=== PATIENT | female | born 1990 | race Caucasian/White ===

== ENCOUNTER 2019-08-21 15:05 | Emergency (ER) | payer SELFPAY ==
[~2019-08-21] VITALS: Ht 160 cm; Wt 59.0 kg
[2019-08-21 15:30] VITALS: BP 112/73
[2019-08-21 15:33] LABS: BILIRUBIN,URINE NEGATIVE (NEG); CLARITY,URINE CLOUDY; COLOR,URINE YELLOW; NITRITE,URINE NEGATIVE (NEG); PH,URINE 5.5 (<5.0-8.0); PROTEIN,URINE NEGATIVE (NEG-TRACE); UROBILINOGEN,URINE 0.2 mg/dL (0.2 mg/dL)
[2019-08-21 15:44] LABS: BACTERIA,URINE MANY /HPF (0-FEW); SQUAMOUS EPITHELIAL CELL,UR MANY /LPF
[2019-08-21 15:52] LABS: U PREG PATIENT NEGATIVE (NEG)
--- NOTE | 2019-08-21 15:59 | PHYS DOC ---
Past Medical History Past Medical History: Other Additional Past Medical Histor: PID Past Surgical History: No Surgical History Smoking Status: Current Every Day Smoker Alcohol Use: None General Adult EDM: Chief Complaint: VAGINAL PROBLEM HPI: HPI: Patient is a 28 year old female with no significant medical history presenting today complaining of vaginal spotting and 4 out of 10 generalized pelvic pain, symptoms for been going on for 3 weeks. Denies any exacerbating or relieving factors to her symptoms. She states she has a Mirena for the last 9 years and w ould like it removed. Review of Systems: Review of Systems: Constitutional: Denies fever or chills. [] Eyes: Denies change in visual acuity. [] HENT: Denies nasal congestion or sore throat. [] Respiratory: Denies cough or shortness of breath. [] Cardiovascular: Denies chest pain or edema. [] GI: Reports pelvic pain with spotting, denies nausea, vomiting, bloody stools or diarrhea. [] : Denies dysuria. [] Musculoskeletal: Denies back pain or joint pain. [] Integument: Denies rash. [] Neurologic: Denies headache, focal weakness or sensory changes. [] Endocrine: Denies polyuria or polydipsia. [] Lymphatic: Denies swollen glands. [] Psychiatric: Denies depression or anxiety. [] Heart Score: Risk Factors: Risk Factors: DM, Current or recent (<one month) smoker, HTN, HLP, family history of CAD, obesity. Risk Scores: Score 0 - 3: 2.5% MACE over next 6 weeks - Discharge Home Score 4 - 6: 20.3% MACE over next 6 weeks - Admit for Clinical Observation Score 7 - 10: 72.7% MACE over next 6 weeks - Early Invasive Strategies Allergies: Allergies: Allergies Coded Allergies Type Severity Reaction Last Updated Verified No Known Drug Allergies 08/21/19 No Physical Exam: PE: Constitutional: Well developed, well nourished, no acute distress, non-toxic appearance. [] HENT: Normocephalic, atraumatic, bilateral external ears normal, oropharynx moist, no oral exudates, nose normal. [] Eyes: PERRLA, EOMI, conjunctiva normal, no discharge. [] Neck: Normal range of motion, no tenderness, supple, no stridor. [] Cardiovascular:Heart rate regular rhythm, no murmur [] Lungs & Thorax: Bilateral breath sounds clear to auscultation [] Abdomen: Bowel sounds normal, soft, no tenderness, no masses, no pulsatile masses. [] Pelvic exam-external pelvic appears normal, cervix is well visualized, Mirena strings noted in the cervical os. Trace amount of brownish discharge consistent with spotting, no CMT, no adnexal tenderness Skin: Warm, dry, no erythema, no rash. [] Back: No tenderness, no CVA tenderness. [] Extremities: No tenderness, no cyanosis, no clubbing, ROM intact, no edema. [] Neurologic: Alert and oriented X 3, normal motor function, normal sensory function, no focal deficits noted. [] Psychologic: Affect normal, judgement normal, mood normal. [] Current Patient Data: Labs: Laboratory Tests Test 08/21/19 15:30 Urine Collection Type Unknown Urine Color Yellow Urine Clarity Cloudy Urine pH 5.5 (<5.0-8.0) Urine Specific [place] 1.025 (1.000-1.030) Urine Protein Negative mg/dL (NEG-TRACE) Urine Glucose (UA) Negative mg/dL (NEG) Urine Ketones (Stick) Negative mg/dL (NEG) Urine Blood Moderate (NEG) Urine Nitrite Negative (NEG) Urine Bilirubin Negative (NEG) Urine Urobilinogen Dipstick 0.2 mg/dL (0.2 mg/dL) Urine Leukocyte Esterase Moderate (NEG) Urine RBC 3-5 /HPF (0-2) Urine WBC 5-10 /HPF (0-4) Urine Squamous Epithelial Cells Many /LPF Urine Bacteria Many /HPF (0-FEW) Urine Mucus Slight /LPF Urine Test Negative (NEG) Vital Signs: Vital Signs Date Time Temp Pulse Resp B/P (MAP) Pulse Ox O2 Delivery O2 Flow Rate FiO2 08/21/19 15:30 97.8 91 16 112/73 (86) 97 Room Air 97.8 EKG: EKG: [] Radiology/Procedures: Radiology/Procedures: []PROCEDURE: PELVIS W/TV PELVIS W/TV: 08/21/2019 3:55 PM INDICATION: 28 years old Female. Pelvic pain, spotting. IUD. COMPARISON: None. TECHNIQUE: Transabdominal and transvaginal sonographic evaluation of the pelvis was performed. Grayscale, color Doppler and spectral waveform analysis were utilized. FINDINGS: UTERUS: Size: 7.6 x 4.4 x 3.3 cm. Masses: None. Endometrium: 1.4 mm. IUD is present within the mid uterine segment. No suspicious vascularity is identified. Echogenic foci with shadowing within the endometrium could represent gas or calcifications. RIGHT OVARY: 2.2 x 2.2 x 1.8 cm. Ovary is normal in appearance. LEFT OVARY: 2.2 x 1.8 x 1.6 cm. Ovary is normal in appearance. Arterial and venous waveform are identified within the ovaries bilaterally at the time of imaging. FREE FLUID: None. URINARY BLADDER: Unremarkable. IMPRESSION: 1. IUD is present within the mid uterine body. Foci of possible gas noted within the endometrium, nonspecific. Alternatively, these findings could represent areas of calcification. Correlate with any signs and symptoms of pelvic inflammatory disease/endometritis. Perfusion is noted to the ovaries bilaterally at the time of imaging. Electronically signed by: Robert Gay MD (08/21/2019 5:04 PM) [id number] DICTATED and SIGNED BY: ROBERT GAY MD DATE: 08/21/19 1704 Course & Med Decision Making: Course & Med Decision Making Pertinent Labs and Imaging studies reviewed. (See chart for details) This is a 28-year-old female patient presenting to the ED today with vaginal spotting for 3 weeks and pelvic pain. Patient has a Mirena and is requesting we remove it. Negative urine hcg, UA+ for UTI, Wet prep + for BV, and yeast infection. Pelvic ultrasound-IUD is present within the mid uterine body. Possible gas noted within the endometrium, nonspecific. Alternatively, these findings could represent areas of calcification. Correlate with any signs and symptoms of pelvic inflammatory disease/endometritis. Patient eloped Dragon Disclaimer: Dragon Disclaimer: This electronic medical record was generated, in whole or in part, using a voice recognition dictation system. Departure Departure Impression: Primary Impression: UTI (urinary tract infection) Qualified Codes: N39.0 - Urinary tract infection, site not specified Additional Impressions: Pelvic pain Yeast infection Bacterial vaginosis Disposition: AGAINST MEDICAL ADVICE Condition: STABLE Referrals: NO PCP (PCP) RUMA FORTUNE MD follow up in the course of this week Patient Instructions: Bacterial Vaginosis, [id number], Urinary Tract Infection Additional Instructions: You were seen in the Ed referred to an OBGYN for IUD removal. Please complete your antibiotics for UTI and Bacterial vaginosis. We also wrote you prescription for yeast infection. Please take the medicine to completion. CARLOS ENRIUQE LINDSEY APRN August 21, 2019 15:59
--- NOTE | 2019-08-21 17:07 | RAD ---
PELVIS W/TV: 08/21/2019 3:55 PM INDICATION: 28 years old Female. Pelvic pain, spotting. IUD. COMPARISON: None. TECHNIQUE: Transabdominal and transvaginal sonographic evaluation of the pelvis was performed. Grayscale, color Doppler and spectral waveform analysis were utilized. FINDINGS: UTERUS: Size: 7.6 x 4.4 x 3.3 cm. Masses: None. Endometrium: 1.4 mm. IUD is present within the mid uterine segment. No suspicious vascularity is identified. Echogenic foci with shadowing within the endometrium could represent gas or calcifications. RIGHT OVARY: 2.2 x 2.2 x 1.8 cm. Ovary is normal in appearance. LEFT OVARY: 2.2 x 1.8 x 1.6 cm. Ovary is normal in appearance. Arterial and venous waveform are identified within the ovaries bilaterally at the time of imaging. FREE FLUID: None. URINARY BLADDER: Unremarkable. IMPRESSION: 1. IUD is present within the mid uterine body. Foci of possible gas noted within the endometrium, nonspecific. Alternatively, these findings could represent areas of calcification. Correlate with any signs and symptoms of pelvic inflammatory disease/endometritis. Perfusion is noted to the ovaries bilaterally at the time of imaging. Electronically signed by: Maren Gay MD (08/21/2019 5:04 PM) [id number]
[2019-08-22 18:09] LABS: GC PROBE Negative (Negative)
== END 2019-08-21 17:38 | disposition left against medical advice (07) ==
LOC: ER 15:05
DX: B37.49 Other urogenital candidiasis (principal); N76.0 Acute vaginitis; B96.89 Other specified bacterial agents as the cause of diseases classified elsewhere; F17.200 Nicotine dependence, unspecified, uncomplicated
CPT/HCPCS: 76830; 76856; 81001; 81025; 87491; 87591; 99284; Q0111